=== PATIENT | female | born 1975 | race Two or more races ===

== ENCOUNTER 2019-09-07 11:26 | Emergency (ER) | payer SELFPAY ==
[~2019-09-07] VITALS: Ht 162.6 cm; Wt 60.8 kg
--- NOTE | 2019-09-07 11:44 | NUR ---
[id number] [address], bizarre behavior, running around naked. on room air, breathing evenly and unlabored , connected to the monitor and pulse ox. kept comfortable, will continue to monitor accordingly. Sitter at bedside for constant monitoring.
--- NOTE | 2019-09-07 13:20 | NUR ---
PT FELL ASLEEP VSS
[2019-09-07] MEDS ORDERED: OLANZAPINE 10 MG VIAL IM ONE ×2 (15:16→15:30)
--- NOTE | 2019-09-07 15:20 | NUR ---
pt refused blood draw zyprexa 10 mg im rt deltoid im given tolerated well
--- NOTE | 2019-09-07 15:36 | NUR ---
PT SLEEPING IN AND OUT CATH DONE BLOOD WORK
[2019-09-07 16:03] LABS: BASOPHILS % (AUTO) 0.6 % (0.0-2.0); EOSINOPHILS % (AUTO) 2.3 % (0.0-6.0); HEMATOCRIT 43 % (33-45); HEMOGLOBIN 13.8 g/dL (11.5-14.8); LYMPHOCYTES # (AUTO) 1.4 /CMM (0.8-4.8); LYMPHOCYTES % (AUTO) 43.6 % (20.0-44.0); MEAN CORPUSCULAR HGB CONC 33 g/dl (31.0-36.0); MEAN CORPUSCULAR VOLUME 87 fL (82-100); MONOCYTES # (AUTO) 0.5 /CMM (0.1-1.30); MONOCYTES % (AUTO) 14.1 % (2.0-12.0); NEUTROPHILS # (AUTO) 1.3 /CMM (1.8-8.9); NEUTROPHILS % (AUTO) 39.4 % (43.0-81.0); PLATELET COUNT (AUTO) 302 /CMM (150-450); RED BLOOD CELL COUNT(AUTO) 4.92 MIL/uL (4.0-5.2); WHITE BLOOD COUNT (AUTO) 3.3 K/uL (4.3-11.0)
[2019-09-07 16:28] LABS: APPEARANCE,URINE Clear (CLEAR); BILIRUBIN,URINE MODERATE (NEGATIVE); BLOOD, URINE Trace-intact Ery/uL (NEGATIVE); COLOR,URINE Dark (YELLOW); KETONES,URINE 40 (NEGATIVE); LEUKOCYTE ESTERASE ,URINE Negative (NEGATIVE); NITRITE, URINE Negative (NEGATIVE); PROTEIN,URINE 100 mg/dl (NEGATIVE); UGLUCOSE Negative (NEGATIVE)
[2019-09-07 16:37] LABS: ALANINE AMINOTRANSFERASE 18 U/L (12-78); ALKALINE PHOSPHATASE 76 U/L (46-116); ASPARTATE AMINOTRANSFERASE 14 U/L (15-37); BILIRUBIN,DIRECT 0.2 mg/dL (0.0-0.2); BILIRUBIN,TOTAL 0.6 mg/dL (0.2-1.0); CALCIUM, SERUM 8.6 mg/dL (8.5-10.1); CARBON DIOXIDE 25 mmol/L (21-32); CHLORIDE 105 mmol/L (98-107); CREATININE 0.9 mg/dL (0.6-1.3); GLUCOSE 87 mg/dL (74-106); POTASSIUM 3.3 mmol/L (3.5-5.1); SALICYLATE 3.1 mg/dL (2.8-20.0); SODIUM SERUM 142 mmol/L (136-145); TOTAL PROTEIN, SERUM 6.6 g/dL (6.4-8.2); UREA NITROGEN, BLOOD 10 mg/dL (7-18)
[2019-09-07 16:54] LABS: ALCOHOL, BLOOD < 3 mg/dL (0-0)
[2019-09-07 16:56] LABS: BACTERIA,URINE Few /HPF (None Seen); MUCUS,URINE Few /LPF (None Seen); SQUAMOUS EPITHELIAL CELL,UR Few /HPF (None Seen); URINE AMORPHOUS URATE Few /HPF (None Seen); WBC,URINE 0-2 /HPF (0-3)
[2019-09-07 17:01] LABS: ACETAMINOPHEN 0 ug/ml (10-30)
--- NOTE | 2019-09-07 17:41 | NUR ---
cont to monitor vss
--- NOTE | 2019-09-07 19:25 | NUR ---
REPORT RECEIVED FROM RAI DIANA
--- NOTE | 2019-09-07 21:52 | NUR ---
PT IN BED SLEEPING AND RESTING COMFORTABLY. SAFETY PRECAUTIONS IN PLACE. WILL CONTINUE TO MONITOR
--- NOTE | 2019-09-08 00:18 | NUR ---
PT IN BED SLEEPING AND RESTING COMFORTABLY. SAFETY PRECAUTIONS IN PLACE. WILL CONTINUE TO MONITOR
--- NOTE | 2019-09-08 02:28 | NUR ---
PT IN BED SLEEPING AND RESTING COMFORTABLY. SAFETY PRECAUTIONS IN PLACE. WILL CONTINUE TO MONITOR
[2019-09-08] MEDS ORDERED: OLANZAPINE 10 MG VIAL IM ONE ×2 (03:07→03:30)
--- NOTE | 2019-09-08 03:13 | NUR ---
PT SCREAMING, ACTING BIZARRE, REFUSING TO PROVIDE NAME. PT MEDICATED ORDERED.
--- NOTE | 2019-09-08 06:35 | NUR ---
PT SLEEPING AND RESTING COMFORTABLY. SAFETY PRECAUTIONS IN PLACE. WILL CONTINUE TO MONITOR
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
--- NOTE | 2019-09-08 15:15 | NUR ---
DOBBY [employer] PEGGER contacted ED CRN Jimmie for an updated on pt's mental status. Per CRN Jimmie, pt is still no alert and oriented to provide any information at this time.
--- NOTE | 2019-09-08 16:13 | NUR ---
Paged Doreen ATWOOD for PET eval
[2019-09-08] MEDS ORDERED: OLANZAPINE 5 MG TABLET PO ONE (16:30)
[2019-09-08] MEDS ORDERED: OLANZAPINE 5 MG TABLET ONE (16:31)
--- NOTE | 2019-09-08 18:00 | NUR ---
PT PROVIDED WITH FOOD AND DRINKS. AMBULATED TO RESTROOM WITH STEADY GAIT. SHE REFUSES TO PROVIDE HER NAME. SHE DENIES ANY SUICIDAL/HOMICIDAL IDEATION
[2019-09-08] MEDS ORDERED: AMMONIA NASAL INHALATION 1 EA PACK NAS ONE (18:08)
--- NOTE | 2019-09-08 18:13 | NUR ---
PT REFUSED PLACEMENT. SHE ELOPED FROM THE EMERGENCY ROOM MD MADE AWARE
[2019-09-08 18:15] VITALS: BP 128/62
== END 2019-09-08 18:20 | disposition left against medical advice (07) ==
LOC: ER 11:34
DX: T43.621A Poisoning by amphetamines, accidental (unintentional), initial encounter (principal); R46.1 Bizarre personal appearance; Y92.89 Other specified places as the place of occurrence of the external cause
CPT/HCPCS: 36415; 80048; 80076; 80305; 80307; 80329; 81001; 85025; 96372 ×2; 99285; G0480; J3490 ×2; 81000-TC